=== PATIENT | male | born 1995 | race Two or more races ===

== ENCOUNTER 2018-02-24 18:40 | Emergency (ER) | payer BC, OTHER ==
[~2018-02-24] VITALS: Ht 185.4 cm; Wt 93.0 kg
[2018-02-24 18:40] VITALS: BP 133/68
[2018-02-24] MEDS ORDERED: HYDROCODONE/APAP 5/325MG 1 EACH TABLET ONE (19:09)
[2018-02-24] MEDS ORDERED: IBUPROFEN 600 MG TABLET PO ONE ×2 (19:10→19:30)
--- NOTE | 2018-02-24 19:15 | NUR ---
ENDORSED PATIENT TO VERITO NIGHT NURSE FOR JANIS.
--- NOTE | 2018-02-24 19:25 | NUR ---
XRAY IN PROGRESS AT THE BEDSIDE.
[2018-02-24] MEDS ORDERED: HYDROCODONE/APAP 5/325MG 1 EACH TABLET PO ONE (19:30)
== END 2018-02-24 20:03 | disposition home or self-care (01) ==
LOC: ER 18:48
DX: S80.12XA Contusion of left lower leg, initial encounter (principal); W18.09XA Striking against other object with subsequent fall, initial encounter; Y93.89 Activity, other specified; Y92.89 Other specified places as the place of occurrence of the external cause; Y99.8 Other external cause status
CPT/HCPCS: 73590; 99283; A4606; Z7610